=== PATIENT | male | born 1955 | race Caucasian/White ===

== ENCOUNTER 2021-04-21 13:00 | Inpatient (IN) ==
[2021-04-21] MEDS ORDERED: RAPID SEQUENCE INDUCTION BAG ONE (13:09)
[2021-04-21] MEDS ORDERED: SODIUM CHLORIDE 0.9% 500 ML IV STA (13:15)
[2021-04-21] MEDS ORDERED: dexAMETHasone**PF** 10 MG/ML VIAL IV ONE (13:15)
--- NOTE | 2021-04-21 13:29 | Emergency Department Note ---
Impression & Plan COVID-19, Respiratory failure with hypoxia ED Provider Note Provider: Bharath Lewis MD DATE OF SERVICE: 04/21/2021 CHIEF COMPLAINT: Shortness of breath HISTORY OF PRESENT ILLNESS: Patient is a 65-year-old woman denies significant past medical history presenting here today from home with his eldest son with persistent shortness of breath. Patient's been sick for several weeks. Works at [employer] and evidently tested positive for Covid on 08 April. Has been using some vitamins at home. States things have been worsening and has not eaten or drank much in the past 2 weeks. States he is lost almost 20 pounds. Reports some pain around the upper abdomen he states is related to cough. States he has had a little bit of bloody coughing at times. Some generalized myalgias and slight fevers reported times and he has been using some Tylenol but not today. Patient reports proximally 3 days ago overnight he had significant worsening of breathing but stayed at home. Things have improved slightly but called his doctors office today due to his persistent symptoms and was referred here. Patient and son report that his pulse ox has been in the 70s for the last several days at home. Patient was noted to be hypoxic in triage immediately brought back to room for further evaluation. Son does report that the patient's been using less than 2 g a day of extra strength Tylenol at home in addition to a small amount of Tylenol containing NyQuil at night. REVIEW OF SYSTEMS: A total of 10 review of systems was obtained and negative except as stated above in the HPI. PAST MEDICAL HISTORY: As noted above MEDICATIONS: Denies regular current prescription medications SOCIAL HISTORY: Works at [employer], denies smoking, lives at home with PHYSICAL EXAM: GENERAL: alert and oriented fatigued in appearance on the stretcher Head: normocephalic and atraumatic EYES: No injection, discharge or icterus. NECK: Trachea midline. ENT: Mucous membranes pink and somewhat dry LUNGS: Airway patent. No retractions. Breath sounds without significant wheezing appreciated. HEART: Regular rate and rhythm. No chest wall tenderness ABDOMEN: Soft and non-tender, without guarding or rebound. SKIN: Acyanotic, warm, dry, without rashes EXTREMITIES: Without swelling, tenderness or deformity NEUROLOGICAL: No focal deficits. No aphasia. No facial droop or slurred speech. Ambulatory with slight assistance EK bpm normal sinus rhythm. No acute ST segment elevation noted with some artifact. No PVC. QTC 481. CONTINUOUS CARDIAC MONITORING: was ordered and showed a heart rate of 80s to 100s bpm in normal sinus rhythm to sinus tachycardia Patient's laboratory studies and imaging reviewed. Differential includes Reactive airway disease, pneumonia, pneumothorax, COPD, CHF, infections, cardiac ischemia, pulmonary embolism, musculoskeletal, gastrointestinal, as well as other pathologies. IMPRESSION/MEDICAL DECISION MAKING: Patient mainly brought back from triage noted be significant hypoxic there. Prior Covid test almost 2 weeks ago now. Hypoxic for several days by report. Finally given lack of improvement came here for evaluation. Given a dose of dex amethasone with concerns for hypoxic Covid. Chest x-ray be obtained as well as basic blood work. Patient does not appear encephalopathic. CT to exclude PEs will be completed as well. EKG without significant concerning findings for STEMI. Basic blood work including electrolytes and troponin will be sent. Blood cultures to be sent. Given his significant weight loss and fatigue question if he he may have an underlying electrolyte abnormality. Confirmatory Covid test was sent here today. Patient's oxygen improved on a nonrebreather into the 90s. Patient does not appear to be in significant respiratory distress or work of breathing at this time. Patient given dexamethasone here given hypoxia and Covid. Chest x-ray and CTs per radiology without evidence of PE. Extensive groundglass airspace opacities consistent with likely Covid pneumonia as well as some lymphadenopathy is noted. Small bibasilar pleural effusions are noted. No significant leukocytosis and lower suspicion this is bacterial. Procalcitonin will be sent. Will defer antibiotics to the inpatient team. Patient does become hypoxic tickly when lying flat but seated on 15 L he is in the low to mid 90s. Blood work is reassuring without significant hypercarbia or anemia. No severe electrolyte abnormalities signs of renal dysfunction. Slight AST elevation at 78 likely related to his viral syndrome but I doubt any significant injury from his Tylenol use less than 2 g over the past 2 weeks. TSH within normal limits. Troponin is not elevated I doubt cardiac ischemia or demand ischemia. Discussed with the patient and son recommendation for further care here at the hospital given his significant hypoxia and oxygen requirement. They are in agreement. The hospitalist will be contacted. Patient later required some escalation to high flow oxygen. DIAGNOSIS: COVID-19, hypoxic respiratory failure DISPOSITION: Hospitalist will evaluate Patient was agreeable with this plan. Critical Care I have personally spent 42 minutes of critical care time in the direct management of this patient. This includes bedside care, interpretation of diagnostic studies, and testing, discussion with consultants, patient, and family members, and other required patient management activities. These 42 minutes is in excess of all separately billable procedures. Past Med/Surg History Social History Smoking Status: Unknown if ever smoked Feels Safe at Home: Yes Allergies Allergies Allergy/AdvReac Type Severity Reaction Status Date / Time No Known Allergies Allergy Unverified 04/21/21 14:57 Home Meds Home Medications Medication Instructions Recorded Confirmed No Known Home Medications 04/21/21 04/21/21 Results & Data (ED) Vital Signs Vital Signs - 24 hr 04/21/21 13:06 04/21/21 13:12 04/21/21 13:31 Temperature 37.5 C Temperature Source Oral Pulse Rate 99 H 87 87 Pulse Rate [Finger] Pulse Rate from SpO2 Sensor 87 87 Respiratory Rate 30 H Respiratory Effort / Characteristics Spontaneous Labored SOB on Exertion Respiratory Depth Normal Respiratory Pattern Regular Blood Pressure 143/84 H 155/85 H 137/84 Blood Pressure [Left Arm] Blood Pressure Mean 103 108 101 Blood Pressure Mean [Left Arm] Pulse Oximetry 68 L 92 93 Oxygen Delivery Method Room Air Oxygen Flow Rate Sepsis Recent Fever Within 48 Hours No Sepsis New/Unexplained Change in Mental Status No Sepsis Action Taken by Nursing No Action Required 04/21/21 13:45 04/21/21 14:21 04/21/21 15:06 Temperature Temperature Source Pulse Rate Pulse Rate [Finger] 95 H Pulse Rate from SpO2 Sensor 91 H 89 Respiratory Rate 22 Respiratory Effort / Characteristics Respiratory Depth Respiratory Pattern Blood Pressure 126/88 Blood Pressure [Left Arm] 137/80 Blood Pressure Mean 100 Blood Pressure Mean [Left Arm] 99 Pulse Oximetry 94 90 89 L Oxygen Delivery Method Non-rebreather Oxygen Flow Rate 15 Sepsis Recent Fever Within 48 Hours Sepsis New/Unexplained Change in Mental Status Sepsis Action Taken by Nursing Laboratory Data Result diagrams: 04/21/21 13:23 04/21/21 13:23 Lab Results 04/21/21 04/21/21 04/21/21 Range/Units 13:23 13:23 13:23 WBC 7.68 (4.8-10.8) K/uL RBC 4.81 (4.7-6.1) M/uL Hgb 14.4 (14.0-18.0) g/dL POC Hgb (14.0-18.0) g/dl Hct 42.2 (42-52) % POC Hct (42-52) % MCV 87.7 (80-100) fL MCH 29.9 (25-34) pg MCHC 34.1 (32-36) g/dL RDW Std Deviation 44.6 (36.4-46.3) fL RDW Coeff of Quynh 13.8 (11.5-14.5) % Plt Count 389 (130-400) K/uL MPV 10.7 H (7.4-10.4) fL Immature Gran % (Auto) 0.7 % Neut % (Auto) 82.4 % Lymph % (Auto) 9.8 % Freestone % (Auto) 7.0 % Eos % (Auto) 0.0 % Baso % (Auto) 0.1 % Neut # (Auto) 6.33 (1.4-6.5) K/uL Lymph # (Auto) 0.75 L (1.2-3.4) K/uL Freestone # (Auto) 0.54 (0.11-0.59) K/uL Eos # (Auto) 0.00 (0-0.5) K/uL Baso # (Auto) 0.01 (0-0.2) K/uL Immature Gran # (Auto) 0.05 H (0.00-0.02) K/uL PT 9.8 (9.0-12.0) Seconds INR 1.0 (0.9-1.1) APTT 26.7 (21.0-31.0) Seconds PTT Ratio 1.0 VBG pH (7.36-7.41) VBG pCO2 (38-50) mmHg VBG pO2 mmHg VBG HCO3 mmol/L VBG O2 Saturation % VBG Base Excess mEq/L Barometric Pressure mm/Hg POC Sodium (135-144) mmol/L Sodium 135 L (136-145) mmol/L POC Potassium (3.3-5.0) mmol/L Potassium 3.6 (3.5-5.1) mmol/L POC Chloride (101-112) mmol/L Chloride 100 (98-107) mmol/L Carbon Dioxide 25 (21-32) mmol/L POC Total CO2 (24-31) mmol/L Anion Gap 10.0 (3-11) POC Anion Gap (16-25) mmol/L POC BUN (7-18) mg/dl BUN 10 (7-18) mg/dl Creatinine 0.72 (0.6-1.4) mg/dl POC Creatinine (0.6-1.3) mg/dl Est Cr Clr Drug Dosing Not Reportable Est GFR ( Amer) 114.3 ml/min Est GFR (Non-Af Amer) 98.6 ml/min BUN/Creatinine Ratio 14.0 (10-20) Glucose 105 H (70-99) mg/dl POC Glucose (other) (70-99) mg/dl Lactate (0.4-2.0) mmol/L Calcium 8.5 (8.5-10.1) mg/dl POC Ioniz Calcium Alex (1.12-1.32) mmol/l Magnesium 2.5 H (1.8-2.4) mg/dl Total Bilirubin 0.9 (0.2-1) mg/dl AST 78 H (15-37) U/L ALT 62 (12-78) U/L Alkaline Phosphatase 140 H (45-117) U/L Troponin I < 0.015 (0-0.045) ng/ml Total Protein 6.7 (6.4-8.2) gm/dl Albumin 2.4 L (3.4-5.0) gm/dl Globulin 4.3 H (2.5-4.0) gm/dl Albumin/Globulin Ratio 0.6 L (0.9-2) TSH 1.030 (0.300-4.500) uIu/ml COVID-19 Eval Order 04/21/21 04/21/21 04/21/21 Range/Units 13:34 13:34 13:37 WBC (4.8-10.8) K/uL RBC (4.7-6.1) M/uL Hgb (14.0-18.0) g/dL POC Hgb 13.9 L (14.0-18.0) g/dl Hct (42-52) % POC Hct 41 L (42-52) % MCV (80-100) fL MCH (25-34) pg MCHC (32-36) g/dL RDW Std Deviation (36.4-46.3) fL RDW Coeff of Quynh (11.5-14.5) % Plt Count (130-400) K/uL MPV (7.4-10.4) fL Immature Gran % (Auto) % Neut % (Auto) % Lymph % (Auto) % Freestone % (Auto) % Eos % (Auto) % Baso % (Auto) % Neut # (Auto) (1.4-6.5) K/uL Lymph # (Auto) (1.2-3.4) K/uL Freestone # (Auto) (0.11-0.59) K/uL Eos # (Auto) (0-0.5) K/uL Baso # (Auto) (0-0.2) K/uL Immature Gran # (Auto) (0.00-0.02) K/uL PT (9.0-12.0) Seconds INR (0.9-1.1) APTT (21.0-31.0) Seconds PTT Ratio VBG pH 7.48 H (7.36-7.41) VBG pCO2 33 L (38-50) mmHg VBG pO2 40 mmHg VBG HCO3 24 mmol/L VBG O2 Saturation 76.4 % VBG Base Excess 1.2 mEq/L Barometric Pressure 730.3 mm/Hg POC Sodium 133 L (135-144) mmol/L Sodium (136-145) mmol/L POC Potassium 3.5 (3.3-5.0) mmol/L Potassium (3.5-5.1) mmol/L POC Chloride 98 L (101-112) mmol/L Chloride (98-107) mmol/L Carbon Dioxide (21-32) mmol/L POC Total CO2 22 L (24-31) mmol/L Anion Gap (3-11) POC Anion Gap 18.0 (16-25) mmol/L POC BUN 10 (7-18) mg/dl BUN (7-18) mg/dl Creatinine (0.6-1.4) mg/dl POC Creatinine 0.6 (0.6-1.3) mg/dl Est Cr Clr Drug Dosing Est GFR ( Amer) ml/min Est GFR (Non-Af Amer) ml/min BUN/Creatinine Ratio (10-20) Glucose (70-99) mg/dl POC Glucose (other) 108 H (70-99) mg/dl Lactate 1.5 (0.4-2.0) mmol/L Calcium (8.5-10.1) mg/dl POC Ioniz Calcium Alex 1.08 L (1.12-1.32) mmol/l Magnesium (1.8-2.4) mg/dl Total Bilirubin (0.2-1) mg/dl AST (15-37) U/L ALT (12-78) U/L Alkaline Phosphatase (45-117) U/L Troponin I (0-0.045) ng/ml Total Protein (6.4-8.2) gm/dl Albumin (3.4-5.0) gm/dl Globulin (2.5-4.0) gm/dl Albumin/Globulin Ratio (0.9-2) TSH (0.300-4.500) uIu/ml COVID-19 Eval Order 04/21/21 Range/Units 14:40 WBC (4.8-10.8) K/uL RBC (4.7-6.1) M/uL Hgb (14.0-18.0) g/dL POC Hgb (14.0-18.0) g/dl Hct (42-52) % POC Hct (42-52) % MCV (80-100) fL MCH (25-34) pg MCHC (32-36) g/dL RDW Std Deviation (36.4-46.3) fL RDW Coeff of Quynh (11.5-14.5) % Plt Count (130-400) K/uL MPV (7.4-10.4) fL Immature Gran % (Auto) % Neut % (Auto) % Lymph % (Auto) % Freestone % (Auto) % Eos % (Auto) % Baso % (Auto) % Neut # (Auto) (1.4-6.5) K/uL Lymph # (Auto) (1.2-3.4) K/uL Freestone # (Auto) (0.11-0.59) K/uL Eos # (Auto) (0-0.5) K/uL Baso # (Auto) (0-0.2) K/uL Immature Gran # (Auto) (0.00-0.02) K/uL PT (9.0-12.0) Seconds INR (0.9-1.1) APTT (21.0-31.0) Seconds PTT Ratio VBG pH (7.36-7.41) VBG pCO2 (38-50) mmHg VBG pO2 mmHg VBG HCO3 mmol/L VBG O2 Saturation % VBG Base Excess mEq/L Barometric Pressure mm/Hg POC Sodium (135-144) mmol/L Sodium (136-145) mmol/L POC Potassium (3.3-5.0) mmol/L Potassium (3.5-5.1) mmol/L POC Chloride (101-112) mmol/L Chloride (98-107) mmol/L Carbon Dioxide (21-32) mmol/L POC Total CO2 (24-31) mmol/L Anion Gap (3-11) POC Anion Gap (16-25) mmol/L POC BUN (7-18) mg/dl BUN (7-18) mg/dl Creatinine (0.6-1.4) mg/dl POC Creatinine (0.6-1.3) mg/dl Est Cr Clr Drug Dosing Est GFR ( Amer) ml/min Est GFR (Non-Af Amer) ml/min BUN/Creatinine Ratio (10-20) Glucose (70-99) mg/dl POC Glucose (other) (70-99) mg/dl Lactate (0.4-2.0) mmol/L Calcium (8.5-10.1) mg/dl POC Ioniz Calcium Alex (1.12-1.32) mmol/l Magnesium (1.8-2.4) mg/dl Total Bilirubin (0.2-1) mg/dl AST (15-37) U/L ALT (12-78) U/L Alkaline Phosphatase (45-117) U/L Troponin I (0-0.045) ng/ml Total Protein (6.4-8.2) gm/dl Albumin (3.4-5.0) gm/dl Globulin (2.5-4.0) gm/dl Albumin/Globulin Ratio (0.9-2) TSH (0.300-4.500) uIu/ml COVID-19 Eval Order Covid19 at [facility] Administered Medications Discontinued Medications Dexamethasone Sodium Phosphate (DexamethasonePf 10 Mg/Ml Vial) 10 mg IV NOW ONE Stop: 04/21/21 13:16 Last Admin: 04/21/21 13:25 Dose: 10 mg Documented by: [id number] Sodium Chloride (Nss) 500 mls @ 999 mls/hr IV .Q31M STA Stop: 04/21/21 13:45 Last Infusion: 04/21/21 14:00 Dose: 0 mls/hr Documented by: [id number] Admin: 04/21/21 13:27 Dose: 999 mls/hr Documented by: [id number] Ioversol (Optiray 320 125ml) 120 ml IV ONCE ONE Stop: 04/21/21 14:11 Last Admin: 04/21/21 14:10 Dose: 120 ml Documented by: [id number] Miscellaneous (Rapid Sequence Induction Bag) Confirm Administered Dose 1 ea .ROUTE .STK-MED ONE Stop: 04/21/21 13:10 Last Admin: 04/21/21 14:50 Dose: Not Given Documented by: [id number] Imaging Data Radiologist's Impression: Chest CTA 04/21/21 13:15 CHEST CTA for PULMONARY ARTERIES CT DOSE: 483.25 mGycm HISTORY: Dyspnea, hypoxia, COVID TECHNIQUE: Multiaxial CT images of the chest were performed following the intravenous administration of contrast to evaluate the pulmonary arteries. Maximal intensity projection images were also obtained. A dose lowering technique was utilized adhering to the principles of ALARA. COMPARISON STUDY: None. FINDINGS: Normal caliber thoracic aorta with no evidence for dissection. No filling defects within the pulmonary arteries to suggest a pulmonary embolus. Limited views of the upper abdomen demonstrate normal liver, spleen, and adrenal glands. Normal esophagus. Subcarinal and bilateral hilar lymphadenopathy, right greater than left. Dominant subcarinal/right infrahilar lymph node measures 3.1 x 2.0 cm. This is nonspecific but likely reactive to the pneumonia. There are small bilateral pleural effusions. No pericardial effusion. The heart is normal in size. No pneumothorax. Extensive groundglass opacities throughout the roberto ority of the lungs with associated interlobular septal thickening demonstrating a "crazy paving" pattern. This could be consistent with the patient's history of Covid pneumonia. This is most pronounced within the mid lung zones. The central airways are patent. IMPRESSION: 1. No evidence for pulmonary embolus. 2. Extensive bilateral groundglass airspace opacities. This likely represents the patient's known Covid pneumonia. 3. Small bilateral pleural effusions. 4. Mediastinal and bilateral hilar lymphadenopathy most pronounced on the right. This could be reactive to the suspected pneumonia. ACT 112: Negative or not required by law. Electronically signed by: German Santana M.D. 04/21/2021 2:34 PM Chest X-Ray 04/21/21 13:15 XR chest 1V portable INDICATION: MN ^Y ^Dyspnea . TECHNIQUE: Single frontal radiograph of the chest was obtained. Comparison: None available at the time of this dictation. FINDINGS: No lines and tubes are seen. The cardiomediastinal silhouette is normal. Opacities are seen in the predominantly mid and lower lungs. Mild cephalization of vasculature and Janis B lines are noted. No evidence of pleural effusion or pneumothorax. IMPRESSION: 1. Diffuse airspace opacities which may represent atelectasis, pneumonia, and/or aspiration. 2. Likely moderate pulmonary edema. ACT 112: Negative or not required by law. Electronically signed by: Sanjay Larry M.D. 04/21/2021 1:55 PM Discharge Plan Visit Data Chief Complaint: Shortness of Breath/Dyspnea Stated Complaint: O2 LEVELS LOW, SOB ED Provider: Bharath Lewis Discharge Problem: COVID-19, Respiratory failure with hypoxia Patient Disposition: Being Evaluated by Hospitalist Discharge Instructions Interventions: ED Discharge Assessment Last Done: 04/21/21 15:32 Forms Stand Alone Forms: [facility] Prescriptions Prescriptions: No Action No Known Home Medications RF: 0 Referrals Referrals: PCP,NO [Physician] - Discharge Problem: Respiratory failure with hypoxia Qualifiers: Chronicity: acute Qualified Code(s): J96.01 - Acute respiratory failure with hypoxia
[2021-04-21 13:43] LABS: Basophils # (auto) 0.01 K/uL (0-0.2); Basophils % (auto) 0.1 %; Hematocrit (blood only) 42.2 % (42-52); Hemoglobin 14.4 g/dL (14.0-18.0); Immature Granulocytes # (auto) 0.05 K/uL (0.00-0.02); Immature Granulocytes % (auto) 0.7 %; Lymphocytes # (auto) 0.75 K/uL (1.2-3.4); Lymphocytes % (auto) 9.8 %; Mean Corpuscular Hemoglobin 29.9 pg (25-34); Mean Corpuscular Hgb Conc 34.1 g/dL (32-36); Mean Corpuscular Volume 87.7 fL (80-100); Mean Platelet Volume 10.7 fL (7.4-10.4); Monocytes # (auto) 0.54 K/uL (0.11-0.59); Neutrophils # (auto) 6.33 K/uL (1.4-6.5); Neutrophils % (auto) 82.4 %; Platelet Count 389 K/uL (130-400); RDW Coefficient of Variation 13.8 % (11.5-14.5); RDW Standard Deviation 44.6 fL (36.4-46.3); Red Blood Count 4.81 M/uL (4.7-6.1); White Blood Count 7.68 K/uL (4.8-10.8)
[2021-04-21 13:50] LABS: iSTAT Creatinine 0.6 mg/dl (0.6-1.3); iSTAT Hemoglobin 13.9 g/dl (14.0-18.0); iSTAT Ionized Calcium 1.08 mmol/l (1.12-1.32); iSTAT Potassium 3.5 mmol/L (3.3-5.0)
--- NOTE | 2021-04-21 13:56 | XRay Report ---
XR chest 1V portable INDICATION: MN ^Y ^Dyspnea . TECHNIQUE: Single frontal radiograph of the chest was obtained. Comparison: None available at the time of this dictation. FINDINGS: No lines and tubes are seen. The cardiomediastinal silhouette is normal. Opacities are seen in the pr edominantly mid and lower lungs. Mild cephalization of vasculature and Janis B lines are noted. No e vidence of pleural effusion or pneumothorax. IMPRESSION: 1. Diffuse airspace opacities which may represent atelectasis, pneumonia, and/or aspiration. 2. Likely moderate pulmonary edema. ACT 112: Negative or not required by law. Electronically signed by: Sanjay Larry M.D. 04/21/2021 1:55 PM
[2021-04-21 13:58] LABS: Partial Thromboplastin Time 26.7 Seconds (21.0-31.0); Prothrombin Time 9.8 Seconds (9.0-12.0)
[2021-04-21 14:00] LABS: Alanine Aminotransferase 62 U/L (12-78); Albumin Level 2.4 gm/dl (3.4-5.0); Aspartate Aminotransferase 78 U/L (15-37); Blood Urea Nitrogen 10 mg/dl (7-18); Calcium 8.5 mg/dl (8.5-10.1); Carbon Dioxide 25 mmol/L (21-32); Chloride 100 mmol/L (98-107); Est GFR (African American) 114.3 ml/min; Est GFR (Non-African American) 98.6 ml/min; Glucose 105 mg/dl (70-99); Magnesium 2.5 mg/dl (1.8-2.4); Potassium 3.6 mmol/L (3.5-5.1); Sodium 135 mmol/L (136-145)
[2021-04-21 14:10] LABS: Albumin Globulin Ratio 0.6 (0.9-2); Alkaline Phosphatase 140 U/L (45-117); Bilirubin,Total 0.9 mg/dl (0.2-1); Globulin 4.3 gm/dl (2.5-4.0); Total Protein 6.7 gm/dl (6.4-8.2); Troponin I < 0.015 ng/ml (0-0.045)
[2021-04-21] MEDS ORDERED: OPTIRAY 320 125ml IV ONE (14:10)
[2021-04-21 14:23] LABS: Base Excess VBG 1.2 mEq/L; Oxygen Saturation VBG 76.4 %; pH VBG 7.48 (7.36-7.41)
--- NOTE | 2021-04-21 14:35 | CT Scan Report ---
CHEST CTA for PULMONARY ARTERIES CT DOSE: 483.25 mGycm HISTORY: Dyspnea, hypoxia, COVID TECHNIQUE: Multiaxial CT images of the chest were performed following the intravenous administration of contrast to evaluate the pulmonary arteries. Maximal intensity projection images were also obtaine d. A dose lowering technique was utilized adhering to the principles of ALARA. COMPARISON STUDY: None. FINDINGS: Normal caliber thoracic aorta with no evidence for dissection. No filling defects within th e pulmonary arteries to suggest a pulmonary embolus. Limited views of the upper abdomen demonstrate n ormal liver, spleen, and adrenal glands. Normal esophagus. Subcarinal and bilateral hilar lymphadenop athy, right greater than left. Dominant subcarinal/right infrahilar lymph node measures 3.1 x 2.0 cm. This is nonspecific but likely reactive to the pneumonia. There are small bilateral pleural effusion s. No pericardial effusion. The heart is normal in size. No pneumothorax. Extensive groundglass opaci ties throughout the majority of the lungs with associated interlobular septal thickening demonstratin g a "crazy paving" pattern. This could be consistent with the patient's history of Covid pneumonia. T his is most pronounced within the mid lung zones. The central airways are patent. IMPRESSION: 1. No evidence for pulmonary embolus. 2. Extensive bilateral groundglass airspace opacities. This likely represents the patient's known Cov id pneumonia. 3. Small bilateral pleural effusions. 4. Mediastinal and bilateral hilar lymphadenopathy most pronounced on the right. This could be reacti ve to the suspected pneumonia. ACT 112: Negative or not required by law. Electronically signed by: German Santana M.D. 04/21/2021 2:34 PM
--- NOTE | 2021-04-21 15:40 | Electrocardiogram Report ---
Test Reason : Blood Pressure : / mmHG Vent. Rate : 088 BPM Atrial Rate : 088 BPM P-R Int : 176 ms QRS Dur : 078 ms QT Int : 398 ms P-R-T Axes : 053 103 043 degrees QTc Int : 481 ms Poor data quality, interpretation may be adversely affected Normal sinus rhythm Rightward axis Septal infarct , age undetermined Abnormal ECG No previous ECGs available Confirmed by Hemant Beaulieu ([id number]) on 04/21/2021 3:40:20 PM Referred By: Confirmed By:Hemant Beaulieu
[2021-04-21] MEDS ORDERED: FUROSEMIDE 40 MG/4 ML VIAL IV ONE ×2 (15:51→18:34)
[2021-04-21] MEDS ORDERED: ACETAMINOPHEN 325 MG TAB PO PRN (16:06)
[2021-04-21] MEDS ORDERED: ALBUT/IPRATROP 3MG/0.5MG NEB 3 ML VIAL NEB PRN (16:06)
--- NOTE | 2021-04-21 16:13 | History & Physical Report ---
Date of Service April 21, 2021 Assessment & Plan (1) COVID-19: (2) Respiratory failure with hypoxia: Plan: -Admit to telemetry -Patient presenting from home with reports of worsening shortness of breath and cough. Reportedly tested positive for COVID-19 on 04/08 -In the ED, was saturating 68% on room air, then placed on 15 L NRB, now requiring high flow 30 L 80% FiO2 -CTA chest negative for pulmonary embolism however shows changes consistent with COVID pneumonia and small bilateral pleural effusions -Not a candidate for remdesivir given length of illness, consider starting tocilizumab tomorrow -Dexamethasone 6 mg IV daily -Lasix 40mg IV x 1 -supportive care with proning, nebs, IS, and flutter valve (3) DVT prophylaxis: Plan: -SQ Lovenoox Admission and Anticipated Discharge Date Admission Date: April 21, 2021 History of Present Illness Chief Complaint: Shortness of breath Primary Care Provider: Marcelino Hodgson DO 65-year-old male without significant past medical history who presents to the ED with reports of shortness of breath. Patient reports testing positive for COVID-19 on 04/08. Official results are not available to me at this time. Lesly puga reports worsening shortness of breath and cough over the past 1 week. Has had a cough productive for mostly white sputum however today became blood-tinged. Patient also reports monitoring his oxygen saturations at home and has been in the 70s. Patient reports some right rib pain from coughing. No chest pain. Reports running persistent fevers of around 100. Reports a very poor appetite. No nausea, vomiting, abdominal pain, diarrhea. Denies lightheadedness, dizziness, diaphoresis, syncopal events. No urinary symptoms. In the ED, patient tested positive for COVID-19. He was saturating 85% on a 15 L nonrebreather, currently being placed on high flow oxygen. Labs are mostly unremarkable. CTA chest negative for pulmonary embolism however shows changes consistent with COVID-19 pneumonia and small bilateral pleural effusions. Patient was given dexamethasone 10 mg IV and IVF. Allergies Allergy/AdvReac Type Severity Reaction Status Date / Time No Known Allergies Allergy Unverified 04/21/21 14:57 Home Medications Medication Instructions Recorded Confirmed Type No Known Home Medications 04/21/21 04/21/21 History Past Med/Surg History Medical History No pertinent past medical history Surgical History No pertinent past surgical history Family History Other Family history unknown Social History (Updated 04/21/21 @ 16:13 by RUBY Mari) Smoking Status: Never smoker Hx Alcohol Use: No Hx Substance Use: No Preferred Language: Maori Communication Ability: Effective Railroad Passenger Agent Required: No Beliefs That Will Affect Care: None Current Living Situation: Spouse Feels Safe at Home: Yes Assistive Devices: Glasses Review of Systems Review of Systems: ROS per HPI, all other systems reviewed and negative Physical Exam Constitutional: WD/WN, vitals as above Eyes: PERRL, conjunctivae normal, anicteric sclerae ENMT: external ear and nose normal, oropharynx normal Respiratory: normal respiratory effort; no respiratory distress Auscultation: + diminished lung sounds (BL, minimal air movement) Cardiovascular: Rate/Rhythm: regular rate and regular rhythm Vessels: normal peripheral pulses Extremities: no edema Gastrointestinal (Abdomen): normal bowel sounds, soft, nontender, no hepatosplenomegaly Musculoskeletal: no cyanosis or clubbing, extremities motor strength 5/5 Skin: no rashes, warm and dry Neurologic: PERRL, EOMI, accommodation nl, no face palsy, no dysarthria Psychiatric: A+Ox3, euthymic affect Results & Data Results & Data ([facility]) Vital Signs (Past 12 Hours) Vital Signs Temp Pulse Pulse Resp BP BP Pulse Ox 04/21/21 15:06 95 H 22 137/80 89 L 04/21/21 14:21 90 04/21/21 13:45 126/88 94 04/21/21 13:31 87 137/84 93 04/21/21 13:12 87 155/85 H 92 04/21/21 13:06 37.5 C 99 H 30 H 143/84 H 68 L Laboratory Results Short CBC 04/21/21 Range/Units 13:23 WBC 7.68 (4.8-10.8) K/uL Hgb 14.4 (14.0-18.0) g/dL Hct 42.2 (42-52) % Plt Count 389 (130-400) K/uL BMP 04/21/21 13:23 Sodium 135 L Potassium 3.6 Chloride 100 Carbon Dioxide 25 BUN 10 Creatinine 0.72 Glucose 105 H Calcium 8.5 Cardiac Enzymes 04/21/21 Range/Units 13:23 Troponin I < 0.015 (0-0.045) ng/ml Liver Function 04/21/21 Range/Units 13:23 Total Bilirubin 0.9 (0.2-1) mg/dl AST 78 H (15-37) U/L ALT 62 (12-78) U/L Alkaline Phosphatase 140 H (45-117) U/L Albumin 2.4 L (3.4-5.0) gm/dl Diagnostic Findings Chest CTA 04/21/21 13:15 CHEST CTA for PULMONARY ARTERIES CT DOSE: 483.25 mGycm HISTORY: Dyspnea, hypoxia, COVID TECHNIQUE: Multiaxial CT images of the chest were performed following the intravenous administration of contrast to evaluate the pulmonary arteries. Maximal intensity projection images were also obtained. A dose lowering technique was utilized adhering to the principles of ALARA. COMPARISON STUDY: None. FINDINGS: Normal caliber thoracic aorta with no evidence for dissection. No filling defects within the pulmonary arteries to suggest a pulmonary embolus. Limited views of the upper abdomen demonstrate normal liver, spleen, and adrenal glands. Normal esophagus. Subcarinal and bilateral hilar lymphadenopathy, right greater than left. Dominant subcarinal/right infrahilar lymph node measures 3.1 x 2.0 cm. This is nonspecific but likely reactive to the pneumonia. There are small bilateral pleural effusions. No pericardial effusion. The heart is normal in size. No pneumothorax. Extensive groundglass opacities throughout the majority of the lungs with associated interlobular septal thickening demonstrating a "crazy paving" pattern. This could be consistent with the patient's history of Covid pneumonia. This is most pronounced within the mid lung zones. The central airways are patent. IMPRESSION: 1. No evidence for pulmonary embolus. 2. Extensive bilateral groundglass airspace opacities. This likely represents the patient's known Covid pneumonia. 3. Small bilateral pleural effusions. 4. Mediastinal and bilateral hilar lymphadenopathy most pronounced on the right. This could be reactive to the suspected pneumonia. ACT 112: Negative or not required by law. Electronically signed by: German Santana M.D. 04/21/2021 2:34 PM Chest X-Ray 04/21/21 13:15 XR chest 1V portable INDICATION: MN ^Y ^Dyspnea . TECHNIQUE: Single frontal radiograph of the chest was obtained. Comparison: None available at the time of this dictation. FINDINGS: No lines and tubes are seen. The cardiomediastinal silhouette is normal. Opacities are seen in the predominantly mid and lower lungs. Mild cephalization of vasculature and Janis B lines are noted. No evidence of pleural effusion or pneumothorax. IMPRESSION: 1. Diffuse airspace opacities which may represent atelectasis, pneumonia, and/or aspiration. 2. Likely moderate pulmonary edema. ACT 112: Negative or not required by law. Electronically signed by: Sanjay Larry M.D. 04/21/2021 1:55 PM Code Status & VTE Plan Code Status Patient is a full code as per my discussion with him. VTE Prophylaxis Plan VTE Prophylaxis will be ordered: Yes Supervising Physician Co-Signing Physician Notes 65-year-old man with out significant past medical or surgical history presents to the ED with shortness of breath starting 04/08 and was diagnosed with COVID-19 as an outpatient. Official results of which are not available. Covid test in the hospital came positive. He was very hypoxic at presentation on room air, needed 15 L oxygen high flow nasal cannula. Upon Exam: GENERAL: Alert and oriented x3. NAD, on 15 L HEENT: No pallor, no icterus. Pupils equal, round and reactive to light. Oral mucosa moist. NECK: No JVD, no neck masses. HEART: S1 and S2 heard. Regular rate and rhythm. No murmur, no gallop. RESPIRATORY SYSTEM: Normal AP diameter. No accessory muscle use. No wheezing, no crackles. ABDOMEN: Soft, bowel sounds present, nontender, no distention. CENTRAL NERVOUS SYSTEM: Alert and oriented x3. No facial droop. Speech is clear. Obeys simple commands. Moves extremities. EXTREMITIES: No edema, no erythema seen. I have seen and examined the patient and have discussed the case with the provider above. I agree with the assessment and plan as stated. (1) Respiratory failure with hypoxia Chronicity: acute Qualified Code(s): J96.01 - Acute respiratory failure with hypoxia
[2021-04-21] MEDS ORDERED: PATIENT'S HEIGHT NEEDED SCH (16:15)
--- NOTE | 2021-04-21 16:33 | Pulmonary Consultation ---
Date of Consultation April 21, 2021 Assessment & Plan (1) COVID-19: (2) Respiratory failure with hypoxia: Chronicity: acute Qualified Code(s): J96.01 - Acute respiratory failure with hypoxia 65-year-old male with no significant past medical history who presented to the hospital due to COVID-19 viral pneumonia and acute hypoxemic respiratory failure. His biomarkers are very elevated. He does qualify for tocilizumab therapy. He defers his medical decisions to his son Ryland. He does not want to give consent for tocilizumab without his son's involvement. I called the patient's son Ryland at phone number [phone]. I discussed the plan of care regarding his father. The patient's son consents for tocilizumab. He understands the risks and benefits of tocilizumab therapy. I will contact the pharmacy and we will administer it. Continue Decadron therapy as you are doing. Self proning highly encouraged. Continue high flow nasal cannula to maintain saturations above 90%. Please wean FiO2 prior to weaning flow. Continue pulmonary toileting with flutter valve and incentive spirometry. Recommend keeping him euvolemic given his ARDS-like picture. Agree with IV Lasix. The patient certainly has a high risk for sudden decompensation and mechanical ventilation. This was relayed to the patient and the patient's son, Ryland. Pulmonary will continue to follow with you. Thank you for the consult. History of Present Illness Reason for Consultation: COVID-19 viral pneumonia Attending Physician: Ofe Le MD History of Present Illness 65-year-old male with no significant past medical history presented to the ER today due to increasing shortness of breath. Patient has had respiratory symptoms for the past several weeks. His p.o. intake has been limited over the past 2 weeks. He has pain in his chest and abdomen due to frequently coughing. He checked his pulse oximetry at home and his pulse ox readings were in the 70s. He is currently on high flow nasal cannula requiring 30 L of flow and 80% FiO2. He relates that he defers most of his medical decisions to his family and his son Ryland. Patient describes that his shortness of breath really began this past Monday and has persisted. No significant cytosis seen on labs. VBG did strain a respiratory alkalosis with a pH of 7.48 and a PCO2 of 33. Mild hyponatremia seen on labs with a sodium of 133. There was some mild transaminitis with an alkaline phosphatase of 140 and an AST of 78. Procalcitonin 0.26. Chest x-ray with diffuse bilateral airspace opacities. Chest CTA personally reviewed with extensive groundglass airspace opacities and small bilateral effusions. Mediastinal and bilateral hilar adenopathy noted. Patient is currently receiving Decadron 6 mg daily and Lovenox 40 mg daily. 500 cc bolus of normal saline was given in the ER. Allergies Allergy/AdvReac Type Severity Reaction Status Date / Time No Known Allergies Allergy Unverified 04/21/21 14:57 Home Medications Medication Instructions Recorded Confirmed Type No Known Home Medications 04/21/21 04/21/21 History Patient History Medical History No pertinent past medical history Surgical History No pertinent past surgical history Family History Other Family history unknown Social History (Updated 04/21/21 @ 16:13 by RUBY Mari) Smoking Status: Never smoker Hx Alcohol Use: No Hx Substance Use: No Preferred Language: Albanian Communication Ability: Effective Social Services Manager Required: No Beliefs That Will Affect Care: None Current Living Situation: Spouse Other Information That Helps Us Care for You: No Feels Safe at Home: Yes Safety Concerns: Feels Safe At This Time Assistive Devices: Glasses Assistive Devices Comment: reading glasses Review of Systems Review of Systems: All systems reviewed & are unremarkable except as noted in HPI & below Physical Exam Physical Exam: Constitutional: Patient appears to be of their stated age. Patient is in no apparent distress. Patient is well-developed. Eyes: Pupils are equal round and reactive to light. Conjunctivae are normal. Anicteric sclera. Ears nose, mouth and throat: Mallampati class []. Normal posterior oropharynx. Uvula is midline. Neck: Trachea is midline. Visual inspection is normal. Respiratory: Mild crackles noted in the lower lobes bilaterally. No wheezes. Mild tachypnea. Cardiovascular: Regular rate and rhythm. No murmurs. No edema. Gastrointestinal: Normal bowel sounds, soft, nontender and nondistended. No hepatosplenomegaly noted. Musculoskeletal: No cyanosis. Patient is able to move all extremities. Strength is 5 out of 5 in the upper and lower extremities. Skin: No rashes, warm dry and intact. Neurologic: No obvious focal neurological deficits seen. Psychiatric: Alert and oriented x3 with a euthymic affect. Results & Data Results & Data ([facility]) Vital Signs (Past 12 Hours) Vital Signs Temp Pulse Pulse Resp BP BP Pulse Ox 04/21/21 16:11 77 18 94 04/21/21 15:06 95 H 22 137/80 89 L 04/21/21 14:21 90 04/21/21 13:45 126/88 94 04/21/21 13:31 87 137/84 93 04/21/21 13:12 87 155/85 H 92 04/21/21 13:06 99.5 F 99 H 30 H 143/84 H 68 L Vital signs, labs and imaging reviewed. CT chest personally reviewed with severe glass opacities diffusely. Bilateral small effusions noted. PG Care Time/CCT Total # of Minutes Spent Total Time Spent with Patient: Total time spent is greater than 50% in coordination of care (as documented) at patient's floor/unit and/or counseling patient: Coding Level of Care Code 38738 Inpt Consult Level 5 Diagnoses COVID-19 U07.1 Respiratory failure with hypoxia J96.01 Chronicity: acute
[2021-04-21 16:51] LABS: Base Excess ABG 0.9 mEq/L (-9-1.8); HCO3 ABG 24 mmol/L (19-24); Oxygen Saturation ABG 97.5 % (90-95); PCO2 ABG 34 mmHg (35-46); PO2 ABG 92 mmHg (80-95); pH ABG 7.47 (7.35-7.45)
[2021-04-21 16:54] LABS: Allen Test Pos (Pos)
[2021-04-21] MEDS ORDERED: TOCILIZUMAB 400 MG, TOCILIZUMAB 200 MG in 0.9 % SODIUM CHLORIDE 70 ML IV ONE (17:45)
[2021-04-21] MEDS: ENOXAPARIN INJ 40 MG/0.4 ML SYR SQ SCH (18:52)
[2021-04-22 07:37] LABS: Albumin Level 2.2 gm/dl (3.4-5.0); BUN Creatinine Ratio 24.9 (10-20); Calcium 8.6 mg/dl (8.5-10.1); Creatinine Clr Calc Pharmacy 86.6 ml/min; Est GFR (African American) 112.4 ml/min; Est GFR (Non-African American) 96.9 ml/min; Magnesium 2.6 mg/dl (1.8-2.4)
[2021-04-22 07:40] LABS: Albumin Globulin Ratio 0.5 (0.9-2); Bilirubin,Total 0.7 mg/dl (0.2-1); Globulin 4.3 gm/dl (2.5-4.0); Total Protein 6.5 gm/dl (6.4-8.2)
--- NOTE | 2021-04-22 12:37 | Pulmonology Progress Note ---
Date of Service April 22, 2021 Assessment & Plan (1) COVID-19: (2) Respiratory failure with hypoxia: Chronicity: acute Qualified Code(s): J96.01 - Acute respiratory failure with hypoxia Plan: 65-year-old male with no significant past medical history who presented to the hospital due to COVID-19 viral pneumonia and acute hypoxemic respiratory failure. Received tocilizumab 04/21/2021. He defers his medical decisions to his son Ryland. He does not want to give consent for tocilizumab without his son's involvement. Phone number [phone]. Patient notes that he was treated for latent tuberculosis 2 to 3 years ago with 6 months of therapy. Procalcitonin 0.26 04/21/2021. No antibiotics indicated at this time. Continue DVT prophylaxis with 40 mg Lovenox daily. Continue Decadron at current dosing. Self and awake proning highly encouraged. Continue high flow nasal cannula to maintain saturations above 90%. Please wean FiO2 prior to weaning flow. Continue pulmonary toileting with flutter valve and incentive spirometry. Recommend keeping him euvolemic given his ARDS-like picture. Continue to use as needed basis IV Lasix. The patient certainly has a high risk for sudden decompensation and mechanical ventilation. Pulmonary will continue to follow with you. Thank you for the consult. Admission and Anticipated Discharge Date Admission Date: April 21, 2021 Subjective Patient seen and examined at bedside. He is sitting up in bed. He denies any shortness of breath. He is currently on high flow nasal cannula saturating approximately 84%. I increased his FiO2 with improvement in his saturations to the low 90s. He denies any chest pain. No fevers or chills. Review of Systems Review of Systems: All systems reviewed & are unremarkable except as noted in HPI & below Physical Exam Physical Exam: Constitutional: Patient appears to be of their stated age. Patient is in no apparent distress. Patient is well-developed. Eyes: Pupils are equal round and reactive to light. Conjunctivae are normal. Anicteric sclera. Ears nose, mouth and throat: Normal posterior oropharynx. Uvula is midline. Neck: Trachea is midline. Visual inspection is normal. Respiratory: Mild crackles noted in the lower lobes bilaterally. No wheezes. Mild tachypnea. Cardiovascular: Regular rate and rhythm. No murmurs. No edema. Gastrointestinal: Normal bowel sounds, soft, nontender and nondistended. No hepatosplenomegaly noted. Musculoskeletal: No cyanosis. Patient is able to move all extremities. Strength is 5 out of 5 in the upper and lower extremities. Skin: No rashes, warm dry and intact. Neurologic: No obvious focal neurological deficits seen. Psychiatric: Alert and oriented x3 with a euthymic affect. Results & Data Results & Data ([facility]) Vital Signs (Past 12 Hours) Vital Signs Temp Pulse Pulse Resp BP Pulse Ox 04/22/21 11:21 98.2 F 87 19 145/73 H 88 L 04/22/21 10:12 87 20 95 04/22/21 08:11 98.4 F 77 18 121/69 93 04/22/21 08:00 64 04/22/21 07:43 76 22 92 04/22/21 03:21 97.7 F 85 20 143/84 H 92 04/22/21 02:48 89 L 04/22/21 02:46 75 20 90 vital signs, labs and imaging personally reviewed. PG Care Time/CCT Total # of Minutes Spent Total Time Spent with Patient: Total time spent is greater than 50% in coordination of care (as documented) at patient's floor/unit and/or counseling patient: Coding Level of Care Code 36943 Subseq Hosp Care Lvl 3 Diagnoses COVID-19 U07.1 Respiratory failure with hypoxia J96.01 Chronicity: acute
[2021-04-22] MEDS: dexAMETHasone 6 MG in SYRINGE 0 ML IV SCH (13:50)
--- NOTE | 2021-04-22 16:30 | Hospitalist Progress Note ---
Date of Service April 22, 2021 Assessment & Plan (1) COVID-19: (2) Respiratory failure with hypoxia: Plan: 65-year-old man with out significant past medical or surgical history presents to the ED with shortness of breath starting 04/08 and was diagnosed with COVID-19 as an outpatient. Official results of which are not available. Covid test in the hospital came positive. He was very hypoxic at presentation on room air, needed 15 L oxygen high flow nasal cannula. Patient reports being treated for TB in 1988 when he entered to [facility]. Not sure whether it is for latent TB or full TB infection. #. Acute hypoxic respiratory failure #. Covid pneumonia Hypoxic at presentation, requiring 15 L nasal cannula oxygen, oxygen requirement uptrending, currently 40 L oxygen. CTA chest negative for PE. Wean oxygen as tolerated, continue with IV dexamethasone Pulmonology on board: Status post Toci 04/21. Patient high risk for decompensation/MV Continue supportive management, encourage spirometry/flutter valve/nebs. DVT prophylaxis: Patient on Lovenox Full code Patient wants his son Ryland to make decision about his medical condition. Admission and Anticipated Discharge Date Admission Date: April 21, 2021 Subjective Patient was sitting up in bed, eating lunch, on high flow nasal cannula oxygen 40 L/min, denies subjective feeling of shortness of breath. Patient desaturated to 70s on high flow nasal cannula overnight, had to be prone to bring his saturation back to more than 90%. Patient advised to prone as able. AOx3. Reports shortness of breath with minimal exertion within room. Denies other review of symptoms. Physical Exam Physical Exam: GENERAL: Alert and oriented x3. NAD, on 40 L HEENT: No pallor, no icterus. Pupils equal, round and reactive to light. Oral mucosa moist. NECK: No JVD, no neck masses. HEART: S1 and S2 heard. Regular rate and rhythm. No murmur, no gallop. RESPIRATORY SYSTEM: Normal AP diameter. No accessory muscle use. No wheezing, crackles diffuse and bilateral ABDOMEN: Soft, bowel sounds present, nontender, no distention. CENTRAL NERVOUS SYSTEM: Alert and oriented x3. No facial droop. Speech is clear. Obeys simple commands. Moves extremities. EXTREMITIES: No edema, no erythema seen. Results & Data Results & Data ([facility]) Vital Signs (Past 12 Hours) Vital Signs Temp Pulse Pulse Resp BP Pulse Ox 04/22/21 16:00 36.9 C 76 20 114/72 96 04/22/21 15:59 76 04/22/21 14:50 78 20 98 04/22/21 11:21 36.8 C 87 19 145/73 H 88 L 04/22/21 10:12 87 20 95 04/22/21 08:11 36.9 C 77 18 121/69 93 04/22/21 08:00 64 04/22/21 07:43 76 22 92 (1) Respiratory failure with hypoxia Chronicity: acute Qualified Code(s): J96.01 - Acute respiratory failure with hypoxia
[2021-04-22] MEDS: ENOXAPARIN INJ 40 MG/0.4 ML SYR SQ SCH (17:11)
[2021-04-23 06:28] LABS: Hematocrit (blood only) 42.2 % (42-52); Mean Corpuscular Hemoglobin 29.3 pg (25-34); Mean Corpuscular Hgb Conc 33.2 g/dL (32-36); Mean Corpuscular Volume 88.3 fL (80-100); Mean Platelet Volume 10.9 fL (7.4-10.4); Platelet Count 478 K/uL (130-400); RDW Coefficient of Variation 13.7 % (11.5-14.5); RDW Standard Deviation 44.7 fL (36.4-46.3); Red Blood Count 4.78 M/uL (4.7-6.1); White Blood Count 8.06 K/uL (4.8-10.8)
[2021-04-23 07:03] LABS: BUN Creatinine Ratio 37.3 (10-20); Calcium 8.6 mg/dl (8.5-10.1); Creatinine Clr Calc Pharmacy 90.2 ml/min; Est GFR (African American) 114.3 ml/min; Est GFR (Non-African American) 98.6 ml/min; Potassium 4.1 mmol/L (3.5-5.1)
[2021-04-23] MEDS: dexAMETHasone 6 MG in SYRINGE 0 ML IV SCH (13:17)
--- NOTE | 2021-04-23 13:56 | Hospitalist Progress Note ---
Date of Service April 23, 2021 Assessment & Plan (1) Respiratory failure with hypoxia: Plan: Secondary to Covid pneumonia. Patient has had ongoing symptoms for the past 2 weeks and has been utilizing home oxygen from a family member prior to admission. He continues on dexamethasone 6 mg daily and is doing well. He received Tocilizumab on 04/21/2021. He has been transitioned off high flow and is now on nasal cannula. He continues to prone, pulmonary toilet as needed. He is otherwise asymptomatic. (2) Pneumonia due to COVID-19 virus: Plan: Continue plan per above. (3) Latent tuberculosis: Plan: Reports previous treatment for this. Latent TB discovered in 1988 when he entered the [facility]. No history of BCG vaccine and uncertain exposure in the past. Currently doing well on steroid therapy. (4) DVT prophylaxis: Plan: Lovenox Full code Disposition-to home when medically stable Rocio Martinez [facility] Ad[facility] and Anticipated Discharge Date Admission Date: April 21, 2021 Subjective 65-year-old man presents with acute respiratory failure secondary to Covid pneumonia He reports feeling well with dyspnea improved today and has now been transitioned off high flow down onto nasal cannula. He denies any chest pain or other issues today He is tolerating p.o. He is afebrile Review of Systems Review of Systems: At least ten systems were reviewed and negative except as indicated in HPI above. Physical Exam Physical Exam: CONSTITUTIONAL: WNWD, vitals as above, generally well- appearing EYES: normal conjunctivae, no scleral icterus ENT: external ear and nose normal, MMM NECK: trachea midline, no lymphadenopathy, normal thyroid RESPIRATORY: clear to auscultation bilaterally, no crackles, rales or wheezes, normal respiratory effort CARDIOVASCULAR: regular rate and rhythm, S1 and 2 heard without murmurs, gallops or rubs, no JVD, no peripheral edema CHEST: inspection of chest was normal GASTROINTESTINAL: normal bowel sounds, soft, nontender, ND, no guarding. MUSCULOSKELETAL: strength 5/5 throughout, head is normocephalic and atraumatic SKIN: warm and dry NEUROLOGIC: CN 2-12 grossly intact, no sensory deficit, normal cognition, normal speech, no tremor, no gross focal deficits. PSYCHIATRIC: alert cooperative and oriented to person, place and time. Results & Data Results & Data ([facility]) Vital Signs (Past 12 Hours) Vital Signs Temp Pulse Resp BP Pulse Ox 04/23/21 11:43 36.6 C 74 20 100/67 90 04/23/21 11:32 87 16 97 04/23/21 08:13 36.8 C 80 22 111/72 96 04/23/21 07:03 81 16 91 04/23/21 04:09 70 18 110/71 94 04/23/21 03:34 67 14 94 Laboratory Results Short CBC 04/23/21 Range/Units 06:08 WBC 8.06 (4.8-10.8) K/uL Hgb 14.0 (14.0-18.0) g/dL Hct 42.2 (42-52) % Plt Count 478 H (130-400) K/uL BMP 04/23/21 06:08 Sodium 139 Potassium 4.1 Chloride 104 Carbon Dioxide 31 BUN 27 H Creatinine 0.72 Glucose 116 H Calcium 8.6 Medications Administered Current Inpatient Medications Acetaminophen (Acetaminophen 325 Mg Tab) 650 mg PO Q4H PRN PRN Reason: Pain or Fever Stop: 05/21/21 16:05 Albuterol (Albut/Ipratrop 3mg/0.5mg Neb 3 Ml Vial) 3 ml NEB Q4R PRN PRN Reason: shortness of breath Stop: 05/21/21 16:05 Enoxaparin Sodium (Enoxaparin Inj 40 Mg/0.4 Ml Syr) 40 mg SQ Q24H KENNEDI Stop: 05/21/21 16:59 Last Admin: 04/22/21 17:11 Dose: 40 mg Documented by: Dexamethasone 6 mg/ Syringe 1.5 mls @ 1 mls/min IV Q24H KENNEDI Stop: 05/22/21 12:59 Last Admin: 04/23/21 13:17 Dose: 1 mls/min Documented by: (1) Respiratory failure with hypoxia Chronicity: acute Qualified Code(s): J96.01 - Acute respiratory failure with hypoxia
--- NOTE | 2021-04-23 16:37 | Pulmonology Progress Note ---
Date of Service April 23, 2021 Assessment & Plan (1) COVID-19: (2) Respiratory failure with hypoxia: Chronicity: acute Qualified Code(s): J96.01 - Acute respiratory failure with hypoxia Plan: 65-year-old male with no significant past medical history who presented to the hospital due to COVID-19 viral pneumonia and acute hypoxemic respiratory failure. Received tocilizumab 04/21/2021. He defers his medical decisions to his son Ryland. Phone number [phone]. Patient notes that he was treated for latent tuberculosis 2 to 3 years ago with 6 months of therapy. Procalcitonin 0.26 04/21/2021. No antibiotics indicated at this time. Continue DVT prophylaxis with 40 mg Lovenox daily. Continue Decadron at current dosing for a total of 10 days. He does not need to remain in the hospital to complete the Decadron course. Self and awake proning highly encouraged. His oxygenation has improved dramatically over the last 2 days. Continue to wean oxygen to maintain sats above 90%. Continue pulmonary toileting with flutter valve and incentive spirometry. Pulmonary will sign off at this time. Thank you for the consultation. Please call with questions. Admission and Anticipated Discharge Date Admission Date: April 21, 2021 Subjective Patient feeling much improved today. He is off high flow nasal cannula and is currently on 5 L of oxygen. He has been very compliant with proning. Appetite good. Feeling much less short of breath. Review of Systems Review of Systems: All systems reviewed & are unremarkable except as noted in HPI & below Physical Exam Physical Exam: Constitutional: Patient appears to be of their stated age. Patient is in no apparent distress. Patient is well-developed. Eyes: Pupils are equal round and reactive to light. Conjunctivae are normal. Anicteric sclera. Ears nose, mouth and throat: Normal posterior oropharynx. Uvula is midline. Neck: Trachea is midline. Visual inspection is normal. Respiratory: Improved air movement bilaterally. No wheezes. Minimal tachypnea. Cardiovascular: Regular rate and rhythm. No murmurs. No edema. Gastrointestinal: Normal bowel sounds, soft, nontender and nondistended. No hepatosplenomegaly noted. Musculoskeletal: No cyanosis. Patient is able to move all extremities. Strength is 5 out of 5 in the upper and lower extremities. Skin: No rashes, warm dry and intact. Neurologic: No obvious focal neurological deficits seen. Psychiatric: Alert and oriented x3 with a euthymic affect. Results & Data Results & Data ([facility]) Vital Signs (Past 12 Hours) Vital Signs Temp Pulse Resp BP Pulse Ox 04/23/21 15:17 98.2 F 69 22 103/68 96 04/23/21 11:43 97.9 F 74 20 100/67 90 04/23/21 11:32 87 16 97 04/23/21 08:13 98.2 F 80 22 111/72 96 04/23/21 07:03 81 16 91 Vital signs, labs and imaging reviewed PG Care Time/CCT Total # of Minutes Spent Total Time Spent with Patient: Total time spent is greater than 50% in coordination of care (as documented) at patient's floor/unit and/or counseling patient: Coding Level of Care Code 99138 Subseq Hosp Care Lvl 2 Diagnoses COVID-19 U07.1 Respiratory failure with hypoxia J96.01 Chronicity: acute
[2021-04-23] MEDS: ENOXAPARIN INJ 40 MG/0.4 ML SYR SQ SCH (18:39)
[2021-04-23] MEDS ORDERED: SODIUM CHLORIDE 0.65% NA SOLN 45 ML (OCEAN) ONE (23:54)
[2021-04-24] MEDS: ZINC SULFATE 220 MG CAPSULE PO SCH (12:23)
[2021-04-24] MEDS: ASCORBIC ACID 500 MG TAB PO SCH ×2 (12:24→21:13)
[2021-04-24] MEDS: FUROSEMIDE 20 MG in SYRINGE 0 ML IV SCH (12:25)
[2021-04-24] MEDS: CHOLECALCIFEROL 1,000 UNITS 25 MCG TAB PO SCH (13:18)
[2021-04-24] MEDS: dexAMETHasone 6 MG in SYRINGE 0 ML IV SCH (13:19)
--- NOTE | 2021-04-24 14:52 | Hospitalist Progress Note ---
Date of Service April 24, 2021 Assessment & Plan (1) Respiratory failure with hypoxia: Plan: Secondary to Covid pneumonia. Patient has had ongoing symptoms for the past 2 weeks and has been utilizing home oxygen from a family member prior to admission. He continues on dexamethasone 6 mg daily and is doing well. He received Tocilizumab on 04/21/2021. He has had a mild increase in oxygen needs overnight. He continues to prone, pulmonary toilet as needed. He is otherwise asymptomatic. (2) Pneumonia due to COVID-19 virus: Plan: Continue plan per above. (3) Latent tuberculosis: Plan: Reports previous treatment for this. Latent TB discovered in 1988 when he entered the [facility]. No history of BCG vaccine and uncertain exposure in the past. Currently doing well on steroid therapy. (4) DVT prophylaxis: Plan: Lovenox Full code Disposition-to home when medically stable Rocio [facility] and Anticipated Discharge Date Admission Date: April 21, 2021 Subjective 65-year-old man presents with acute respiratory failure secondary to Covid pneumonia Slight increase in oxygen needs from 5 L/min to 9 L/min today from yesterday Reports some difficulty sleeping as he had trouble laying on his stomach and proning Otherwise denies any fevers, chills, or other symptoms at this time. Tolerating p.o. Review of Systems Review of Systems: At least ten systems were reviewed and negative except as indicated in HPI above. Physical Exam Physical Exam: CONSTITUTIONAL: WNWD, vitals as above, generally well-appearin g EYES: normal conjunctivae, no scleral icterus ENT: external ear and nose normal, MMM NECK: trachea midline RESPIRATORY: clear to auscultation bilaterally, no crackles, rales or wheezes, normal respiratory effort CARDIOVASCULAR: regular rate and rhythm, S1 and 2 heard without murmurs, gallops or rubs, no JVD, no peripheral edema CHEST: inspection of chest was normal GASTROINTESTINAL: normal bowel sounds, soft, nontender, ND, no guarding. MUSCULOSKELETAL: strength 5/5 throughout, head is normocephalic and atraumatic SKIN: warm and dry NEUROLOGIC: CN 2-12 grossly intact, no sensory deficit, normal cognition, normal speech, no tremor, no gross focal deficits. PSYCHIATRIC: alert cooperative and oriented to person, place and time. Results & Data Results & Data ([facility]) Vital Signs (Past 12 Hours) Vital Signs Temp Pulse Pulse Resp BP Pulse Ox 04/24/21 12:27 36.6 C 75 18 120/74 94 04/24/21 08:29 36.9 C 80 20 117/73 91 04/24/21 07:42 72 04/24/21 03:42 36.5 C 72 19 126/83 96 Medications Administered Current Inpatient Medications Acetaminophen (Acetaminophen 325 Mg Tab) 650 mg PO Q4H PRN PRN Reason: Pain or Fever Stop: 05/21/21 16:05 Albuterol (Albut/Ipratrop 3mg/0.5mg Neb 3 Ml Vial) 3 ml NEB Q4R PRN PRN Reason: shortness of breath Stop: 05/21/21 16:05 Ascorbic Acid (Ascorbic Acid 500 Mg Tab) 500 mg PO BID [facility] Stop: 05/24/21 10:59 Last Admin: 04/24/21 12:24 Dose: 500 mg Documented by: Enoxaparin Sodium (Enoxaparin Inj 40 Mg/0.4 Ml Syr) 40 mg SQ Q24H [facility] Stop: 05/21/21 16:59 Last Admin: 04/23/21 18:39 Dose: 40 mg Documented by: Dexamethasone 6 mg/ Syringe 1.5 mls @ 1 mls/min IV Q24H [facility] Stop: 05/22/21 12:59 Last Admin: 04/24/21 13:19 Dose: 1 mls/min Documented by: Furosemide 20 mg/ Syringe 2 mls @ 4 [facility] Stop: 05/24/21 10:59 Last Admin: 04/24/21 12:25 Dose: 4 mls/min Documented by: Vitamin D (Cholecalciferol 1,000 Units 25 Mcg Tab) 1,000 units PO QAM [facility] Stop: 05/24/21 10:59 Last Admin: 04/24/21 13:18 Dose: 1,000 units Documented by: Zinc Sulfate (Zinc Sulfate 220 Mg Capsule) 220 [facility] Stop: 05/24/21 10:59 Last Admin: 04/24/21 12:23 Dose: 220 mg Documented by: (1) Respiratory failure with hypoxia Chronicity: acute Qualified Code(s): J96.01 - Acute respiratory failure with hypoxia
[2021-04-24] MEDS: ENOXAPARIN INJ 40 MG/0.4 ML SYR SQ SCH (17:08)
[2021-04-25 08:30] LABS: BUN Creatinine Ratio 28.7 (10-20); Creatinine Clr Calc Pharmacy 85.4 ml/min; Est GFR (African American) 111.7 ml/min; Est GFR (Non-African American) 96.4 ml/min; Magnesium 2.6 mg/dl (1.8-2.4); Potassium 4.8 mmol/L (3.5-5.1)
[2021-04-25] MEDS: FUROSEMIDE 20 MG in SYRINGE 0 ML IV SCH (09:36)
[2021-04-25] MEDS: CHOLECALCIFEROL 1,000 UNITS 25 MCG TAB PO SCH (09:36)
[2021-04-25] MEDS: ZINC SULFATE 220 MG CAPSULE PO SCH (09:36)
[2021-04-25] MEDS: ASCORBIC ACID 500 MG TAB PO SCH ×2 (09:36→20:49)
--- NOTE | 2021-04-25 11:12 | Hospitalist Progress Note ---
Date of Service April 25, 2021 Assessment & Plan (1) Respiratory failure with hypoxia: Plan: Secondary to Covid pneumonia. Patient has had ongoing symptoms for the past 2 weeks and has been utilizing home oxygen from a family member prior to admission. He continues on dexamethasone 6 mg daily and is doing well. He received Tocilizumab on 04/21/2021. He has had a decrease in oxygen needs overnight. He continues to prone, pulmonary toilet as needed. He is otherwise asymptomatic. (2) Pneumonia due to COVID-19 virus: Plan: Continue plan per above. (3) Latent tuberculosis: Plan: Reports previous treatment for this. Latent TB discovered in 1988 when he entered the [facility]. No history of BCG vaccine and uncertain exposure in the past. Currently doing well on steroid therapy. (4) DVT prophylaxis: Plan: Lovenox Full code Disposition-to home when medically stable Rocio Martinez DO [place] [facility] Admission and Anticipated Discharge Date Admission Date: April 21, 2021 Subjective 65-year-old man presents with acute respiratory failure secondary to Covid pneumonia Decreased oxygen needs overnight Denies any dyspnea, fevers, chills Fighting boredom and eager to be discharged Tolerating p.o. Review of Systems Review of Systems: At least ten systems were reviewed and negative except as indicated in HPI above. Physical Exam Physical Exam: CONSTITUTIONAL: WNWD, vitals as above, generally well- appearing EYES: normal conjunctivae, no scleral icterus ENT: external ear and nose normal, MMM NECK: trachea midline RESPIRATORY: clear to auscultation bilaterally, no crackles, rales or wheezes, normal respiratory effort CARDIOVASCULAR: regular rate and rhythm, S1 and 2 heard without murmurs, gallops or rubs, no JVD, no peripheral edema CHEST: inspection of chest was normal GASTROINTESTINAL: normal bowel sounds, soft, nontender, ND, no guarding. MUSCULOSKELETAL: strength 5/5 throughout, head is normocephalic and atraumatic SKIN: warm and dry NEUROLOGIC: CN 2-12 grossly intact, no sensory deficit, normal cognition, normal speech, no tremor, no gross focal deficits. PSYCHIATRIC: alert cooperative and oriented to person, place and time. Results & Data Results & Data ([facility]) Vital Signs (Past 12 Hours) Vital Signs Temp Pulse Pulse Resp BP Pulse Ox 04/25/21 11:03 64 04/25/21 09:45 93 04/25/21 07:54 36.6 C 67 18 100/64 97 04/25/21 03:47 36.8 C 71 18 97/66 L 93 04/25/21 00:00 76 Laboratory Results [facility] 04/25/21 07:34 Sodium 138 Potassium 4.8 Chloride 103 Carbon Dioxide 31 BUN 22 H Creatinine 0.76 Glucose 89 Calcium 9.0 Medications Administered Current Inpatient Medications Acetaminophen (Acetaminophen 325 Mg Tab) 650 mg PO Q4H PRN PRN Reason: Pain or Fever Stop: 05/21/21 16:05 Albuterol (Albut/Ipratrop 3mg/0.5mg Neb 3 Ml Vial) 3 ml NEB Q4R PRN PRN Reason: shortness of breath Stop: 05/21/21 16:05 Ascorbic Acid (Ascorbic Acid 500 Mg Tab) 500 mg PO BID [facility] Stop: 05/24/21 10:59 Last Admin: 04/25/21 09:36 Dose: 500 mg Documented by: Enoxaparin Sodium (Enoxaparin Inj 40 Mg/0.4 Ml Syr) 40 mg SQ Q24H [facility] Stop: 05/21/21 16:59 Last Admin: 04/24/21 17:08 Dose: 40 mg Documented by: Dexamethasone 6 mg/ Syringe 1.5 mls @ 1 mls/min IV Q24H [facility] Stop: 05/22/21 12:59 Last Admin: 04/24/21 13:19 Dose: 1 mls/min Documented by: Furosemide 20 mg/ Syringe 2 mls @ [facility] [place] [place] Stop: 05/24/21 10:59 Last Admin: 04/25/21 09:36 Dose: 4 mls/min Documented by: Vitamin D (Cholecalciferol 1,000 Units 25 Mcg Tab) 1,000 [facility] [place] Stop: 05/24/21 10:59 Last Admin: 04/25/21 09:36 Dose: 1,000 units Documented by: Zinc Sulfate (Zinc Sulfate 220 Mg Capsule) [facility] [place] Stop: 05/24/21 10:59 Last Admin: 04/25/21 09:36 Dose: 220 mg Documented by: (1) Respiratory failure with hypoxia Chronicity: acute Qualified Code(s): J96.01 - Acute respiratory failure with hypoxia
[2021-04-25] MEDS: dexAMETHasone 6 MG in SYRINGE 0 ML IV SCH (13:42)
[2021-04-25] MEDS: ENOXAPARIN INJ 40 MG/0.4 ML SYR SQ SCH (18:09)
[2021-04-26] MEDS: ASCORBIC ACID 500 MG TAB PO SCH ×2 (08:01→20:16)
[2021-04-26] MEDS: ZINC SULFATE 220 MG CAPSULE PO SCH (08:01)
[2021-04-26] MEDS: CHOLECALCIFEROL 1,000 UNITS 25 MCG TAB PO SCH (08:01)
[2021-04-26] MEDS: dexAMETHasone 6 MG in SYRINGE 0 ML IV SCH (11:49)
[2021-04-26] MEDS: ENOXAPARIN INJ 40 MG/0.4 ML SYR SQ SCH (16:38)
--- NOTE | 2021-04-26 19:47 | Hospitalist Progress Note ---
Date of Service April 26, 2021 Assessment & Plan (1) Respiratory failure with hypoxia: Plan: Secondary to Covid pneumonia. Patient has had ongoing symptoms for the past 2 weeks and has been utilizing home oxygen from a family member prior to admission. He continues on dexamethasone daily and is doing well. He received Tocilizumab on 04/21/2021. He has had a decrease in oxygen needs overnight-Now on 3 L/min. He continues to prone, pulmonary toilet as needed. He is otherwise asymptomatic. Covid isolation removed per infection prevention personnel. (2) Pneumonia due to COVID-19 virus: Plan: Continue plan per above. (3) Latent tuberculosis: Plan: Reports previous treatment for this. Latent TB discovered in 1988 when he entered the [place]. No history of BCG vaccine and uncertain exposure in the past. Currently doing well on steroid therapy. (4) DVT prophylaxis: Plan: Lovenox Full code Disposition-to home when medically stable. DC Covid isolation, DC'd telemetry, continue pulse ox monitoring Rocio Martinez DO [facility] Hospitalist Admission and Anticipated Discharge Date Admission Date: April 21, 2021 Subjective 65-year-old man presents with acute respiratory failure secondary to Covid pneumonia Decreased oxygen needs overnight-now on 3LPM Denies any dyspnea, fevers, chills Denies dyspnea with exertion, eager to be discharged. Review of Systems Review of Systems: At least ten systems were reviewed and negative except as indicated in HPI above. Physical Exam Physical Exam: CONSTITUTIONAL: WNWD, vitals as above, generally well- appearing EYES: normal conjunctivae, no scleral icterus ENT: external ear and nose normal, MMM NECK: trachea midline RESPIRATORY: clear to auscultation bilaterally, no crackles, rales or wheezes, normal respiratory effort CARDIOVASCULAR: regular rate and rhythm, S1 and 2 heard without murmurs, gallops or rubs, no JVD, no peripheral edema CHEST: inspection of chest was normal GASTROINTESTINAL: normal bowel sounds, soft, nontender, ND, no guarding. MUSCULOSKELETAL: strength 5/5 throughout, head is normocephalic and atraumatic SKIN: warm and dry NEUROLOGIC: CN 2-12 grossly intact, no sensory deficit, normal cognition, normal speech, no tremor, no gross focal deficits. PSYCHIATRIC: alert cooperative and oriented to person, place and time. Results & Data Results & Data ([facility]) Vital Signs (Past 12 Hours) Vital Signs Temp Pulse Pulse Resp BP Pulse Ox 04/26/21 16:38 36.9 C 83 14 93/61 L 94 04/26/21 11:49 36.9 C 84 14 110/73 93 04/26/21 08:00 36.7 C 63 73 14 102/67 93 Medications Administered Current Inpatient Medications Acetaminophen (Acetaminophen 325 Mg Tab) 650 mg PO Q4H PRN PRN Reason: Pain or Fever Stop: 05/21/21 16:05 Albuterol (Albut/Ipratrop 3mg/0.5mg Neb 3 Ml Vial) 3 ml NEB Q4R PRN PRN Reason: shortness of breath Stop: 05/21/21 16:05 Ascorbic Acid (Ascorbic Acid 500 Mg Tab) 500 mg PO BID [facility] Stop: 05/24/21 10:59 Last Admin: 04/26/21 08:01 Dose: 500 mg Documented by: Enoxaparin Sodium (Enoxaparin Inj 40 Mg/0.4 Ml Syr) 40 mg SQ Q24H [facility] Stop: 05/21/21 16:59 Last Admin: 04/26/21 16:38 Dose: 40 mg Documented by: Dexamethasone 6 mg/ Syringe 1.5 mls @ 1 mls/min IV Q24H [facility] Stop: 05/22/21 12:59 Last Admin: 04/26/21 11:49 Dose: 1 mls/min Documented by: Vitamin D (Cholecalciferol 1,000 Units 25 Mcg Tab) 1,000 units PO QAM [facility] Stop: 05/24/21 10:59 Last Admin: 04/26/21 08:01 Dose: 1,000 units Documented by: Zinc Sulfate (Zinc Sulfate 220 Mg Capsule) 220 mg PO QAM [facility] Stop: 05/24/21 10:59 Last Admin: 04/26/21 08:01 Dose: 220 mg Documented by: (1) Respiratory failure with hypoxia Chronicity: acute Qualified Code(s): J96.01 - Acute respiratory failure with hypoxia
[2021-04-26 22:54] VITALS: TEMP 98.1
[2021-04-27] MEDS: CHOLECALCIFEROL 1,000 UNITS 25 MCG TAB PO SCH (07:47)
[2021-04-27] MEDS: ASCORBIC ACID 500 MG TAB PO SCH (07:48)
[2021-04-27] MEDS: ZINC SULFATE 220 MG CAPSULE PO SCH (07:48)
[2021-04-27 08:27] VITALS: BP 101/65; O2SAT 91
--- NOTE | 2021-04-27 14:24 | Discharge Summary ---
Date of Service April 27, 2021 Admission HPI Per Admitting Provider 65-year-old male without significant past medical history who presents to the ED with reports of shortness of breath. Patient reports testing positive for COVID-19 on 04/08. Official results are not available to me at this time. Patient reports worsening shortness of breath and cough over the past 1 week. Has had a cough productive for mostly white sputum however today became blood- tinged. Patient also reports monitoring his oxygen saturations at home and has been in the 70s. Patient reports some right rib pain from coughing. No chest pain. Reports running persistent fevers of around 100. Reports a very poor appetite. No nausea, vomiting, abdominal pain, diarrhea. Denies lightheadedness, dizziness, diaphoresis, syncopal events. No urinary symptoms. In the ED, patient tested positive for COVID-19. He was saturating 85% on a 15 L nonrebreather, currently being placed on high flow oxygen. Labs are mostly unremarkable. CTA chest negative for pulmonary embolism however shows changes consistent with COVID-19 pneumonia and small bilateral pleural effusions. Patient was given dexamethasone 10 mg IV and IVF. Admission Exam Per Admitting Provider Constitutional: WD/WN, vitals as above Eyes: PERRL, conjunctivae normal, anicteric sclerae ENMT: external ear and nose normal, oropharynx normal Respiratory: normal respiratory effort; no respiratory distress Auscultation: + diminished lung sounds (BL, minimal air movement) Cardiovascular: Rate/Rhythm: regular rate and regular rhythm Vessels: normal peripheral pulses Extremities: no edema Gastrointestinal (Abdomen): normal bowel sounds, soft, nontender, no hepatosplenomegaly Musculoskeletal: no cyanosis or clubbing, extremities motor strength 5/5 Skin: no rashes, warm and dry Neurologic: PERRL, EOMI, accommodation nl, no face palsy, no dysarthria Psychiatric: A+Ox3, euthymic affect Principal Diagnosis Acute respiratory failure covid pneumonia Discharge Exam CONSTITUTIONAL: WNWD, vitals as above, generally well-appearing EYES: normal conjunctivae, no scleral icterus ENT: external ear and nose normal, MMM NECK: trachea midline RESPIRATORY: clear to auscultation bilaterally, no crackles, rales or wheezes, normal respiratory effort CARDIOVASCULAR: regular rate and rhythm, S1 and 2 heard without murmurs, gallops or rubs, no JVD, no peripheral edema CHEST: inspection of chest was normal GASTROINTESTINAL: normal bowel sounds, soft, nontender, ND, no guarding. MUSCULOSKELETAL: strength 5/5 throughout, head is normocephalic and atraumatic SKIN: warm and dry NEUROLOGIC: CN 2-12 grossly intact, no sensory deficit, normal cognition, normal speech, no tremor, no gross focal deficits. PSYCHIATRIC: alert cooperative and oriented to person, place and time. Discharge Data Allergies Allergy/AdvReac Type Severity Reaction Status Date / Time No Known Allergies Allergy Unverified 04/21/21 14:57 Consultations 04/21/21 14:43 ED Decision to Admit Stat 04/21/21 16:06 Consult Pulmonology Routine Ordered Studies Laboratory Results WBC 8.06 K/uL (4.8-10.8) 04/23/21 06:08 RBC 4.78 M/uL (4.7-6.1) 04/23/21 06:08 Hgb 14.0 g/dL (14.0-18.0) 04/23/21 06:08 POC Hgb 13.9 g/dl (14.0-18.0) L 04/21/21 13:37 Hct 42.2 % (42-52) 04/23/21 06:08 POC Hct 41 % (42-52) L 04/21/21 13:37 MCV 88.3 fL (80-100) 04/23/21 06:08 MCH 29.3 pg (25-34) 04/23/21 06:08 MCHC 33.2 g/dL (32-36) 04/23/21 06:08 RDW Std Deviation 44.7 fL (36.4-46.3) 04/23/21 06:08 RDW Coeff of Quynh 13.7 % (11.5-14.5) 04/23/21 06:08 Plt Count 478 K/uL (130-400) H 04/23/21 06:08 MPV 10.9 fL (7.4-10.4) H 04/23/21 06:08 Immature Gran % (Auto) 0.7 % 04/21/21 13:23 Neut % (Auto) 82.4 % 04/21/21 13:23 Lymph % (Auto) 9.8 % 04/21/21 13:23 [place] % (Auto) 7.0 % 04/21/21 13:23 Eos % (Auto) 0.0 % 04/21/21 13:23 Baso % (Auto) 0.1 % 04/21/21 13:23 Neut # (Auto) 6.33 K/uL (1.4-6.5) 04/21/21 13:23 Lymph # (Auto) 0.75 K/uL (1.2-3.4) L 04/21/21 13:23 [place] # (Auto) 0.54 K/uL (0.11-0.59) 04/21/21 13:23 Eos # (Auto) 0.00 K/uL (0-0.5) 04/21/21 13:23 Baso # (Auto) 0.01 K/uL (0-0.2) 04/21/21 13:23 Immature Gran # (Auto) 0.05 K/uL (0.00-0.02) H 04/21/21 13:23 PT 9.8 Seconds (9.0-12.0) 04/21/21 13:23 INR 1.0 (0.9-1.1) 04/21/21 13:23 APTT 26.7 Seconds (21.0-31.0) 04/21/21 13:23 PTT Ratio 1.0 04/21/21 13:23 ABG pH 7.47 (7.35-7.45) H 04/21/21 16:40 ABG pCO2 34 mmHg (35-46) L 04/21/21 16:40 ABG pO2 92 mmHg (80-95) 04/21/21 16:40 ABG HCO3 24 mmol/L (19-24) 04/21/21 16:40 ABG O2 Saturation 97.5 % (90-95) H 04/21/21 16:40 ABG Base Excess 0.9 mEq/L (-9-1.8) 04/21/21 16:40 Davin Test Pos (Pos) 04/21/21 16:40 VBG pH 7.48 (7.36-7.41) H 04/21/21 13:34 VBG pCO2 33 mmHg (38-50) L 04/21/21 13:34 VBG pO2 40 mmHg 04/21/21 13:34 VBG HCO3 24 mmol/L 04/21/21 13:34 VBG O2 Saturation 76.4 % 04/21/21 13:34 VBG Base Excess 1.2 mEq/L 04/21/21 13:34 Barometric Pressure 730.4 mm/Hg 04/21/21 16:40 Oxygen Given 80% 04/21/21 16:40 POC Sodium 133 mmol/L (135-144) L 04/21/21 13:37 Sodium 138 mmol/L (136-145) 04/25/21 07:34 POC Potassium 3.5 mmol/L (3.3-5.0) 04/21/21 13:37 Potassium 4.8 mmol/L (3.5-5.1) 04/25/21 07:34 POC Chloride 98 mmol/L (101-112) L 04/21/21 13:37 Chloride 103 mmol/L (98-107) 04/25/21 07:34 Carbon Dioxide 31 mmol/L (21-32) 04/25/21 07:34 POC Total CO2 22 mmol/L (24-31) L 04/21/21 13:37 Anion Gap 4.0 (3-11) 04/25/21 07:34 POC Anion Gap 18.0 mmol/L (16-25) 04/21/21 13:37 POC BUN 10 mg/dl (7-18) 04/21/21 13:37 BUN 22 mg/dl (7-18) H 04/25/21 07:34 Creatinine 0.76 mg/dl (0.6-1.4) 04/25/21 07:34 POC Creatinine 0.6 mg/dl (0.6-1.3) 04/21/21 13:37 Est Cr Clr Drug Dosing 85.4 ml/min 04/25/21 07:34 Est GFR ( Amer) 111.7 ml/min 04/25/21 07:34 Est GFR (Non-Af Amer) 96.4 ml/min 04/25/21 07:34 BUN/Creatinine Ratio 28.7 (10-20) H 04/25/21 07:34 Glucose 89 mg/dl (70-99) 04/25/21 07:34 POC Glucose (other) 108 mg/dl (70-99) H 04/21/21 13:37 Lactate 1.5 mmol/L (0.4-2.0) 04/21/21 13:34 Calcium 9.0 mg/dl (8.5-10.1) 04/25/21 07:34 POC Ioniz Calcium Alex 1.08 mmol/l (1.12-1.32) L 04/21/21 13:37 Magnesium 2.6 mg/dl (1.8-2.4) H 04/25/21 07:34 Total Bilirubin 0.7 mg/dl (0.2-1) 04/22/21 06:14 AST 67 U/L (15-37) H 04/22/21 06:14 ALT 60 U/L (12-78) 04/22/21 06:14 Alkaline Phosphatase 124 U/L (45-117) H 04/22/21 06:14 Troponin I < 0.015 ng/ml (0-0.045) 04/21/21 13:23 C-Reactive Protein 12.80 mg/dl (0-0.29) H 04/21/21 13:23 Total Protein 6.5 gm/dl (6.4-8.2) 04/22/21 06:14 Albumin 2.2 gm/dl (3.4-5.0) L 04/22/21 06:14 Globulin 4.3 gm/dl (2.5-4.0) H 04/22/21 06:14 Albumin/Globulin Ratio 0.5 (0.9-2) L 04/22/21 06:14 Procalcitonin 0.26 ng/ml (0-0.5) 04/21/21 13:36 TSH 1.030 uIu/ml (0.300-4.500) 04/21/21 13:23 COVID-19 Eval Order Covid19 at [facility] 04/21/21 14:40 SARS-CoV-2 (PCR) POSITIVE (Negative) A* 04/21/21 14:40 Impressions Chest CTA 04/21/21 13:15 CHEST CTA for PULMONARY ARTERIES CT DOSE: 483.25 mGycm HISTORY: Dyspnea, hypoxia, COVID TECHNIQUE: Multiaxial CT images of the chest were performed following the intravenous administration of contrast to evaluate the pulmonary arteries. Maximal intensity projection images were also obtained. A dose lowering technique was utilized adhering to the principles of ALARA. COMPARISON STUDY: None. FINDINGS: Normal caliber thoracic aorta with no evidence for dissection. No filling defects within the pulmonary arteries to suggest a pulmonary embolus. Limited views of the upper abdomen demonstrate normal liver, spleen, and adrenal glands. Normal esophagus. Subcarinal and bilateral hilar lymphadenopathy, right greater than left. Dominant subcarinal/right infrahilar lymph node measures 3.1 x 2.0 cm. This is nonspecific but likely reactive to the pneumonia. There are small bilateral pleural effusions. No pericardial effusion. The heart is normal in size. No pneumothorax. Extensive groundglass opacities throughout the majority of the lungs with associated interlobular septal thickening demonstrating a "crazy paving" pattern. This could be consistent with the patient's history of Covid pneumonia. This is most pronounced within the mid lung zones. The central airways are patent. IMPRESSION: 1. No evidence for pulmonary embolus. 2. Extensive bilateral groundglass airspace opacities. This likely represents the patient's known Covid pneumonia. 3. Small bilateral pleural effusions. 4. Mediastinal and bilateral hilar lymphadenopathy most pronounced on the right. This could be reactive to the suspected pneumonia. ACT 112: Negative or not required by law. Electronically signed by: German Santana M.D. 04/21/2021 2:34 PM Chest X-Ray 04/21/21 13:15 XR chest 1V portable INDICATION: MN ^Y ^Dyspnea . TECHNIQUE: Single frontal radiograph of the chest was obtained. Comparison: None available at the time of this dictation. FINDINGS: No lines and tubes are seen. The cardiomediastinal silhouette is normal. Opaciti es are seen in the predominantly mid and lower lungs. Mild cephalization of vasculature and Janis B lines are noted. No evidence of pleural effusion or pneumothorax. IMPRESSION: 1. Diffuse airspace opacities which may represent atelectasis, pneumonia, and/or aspiration. 2. Likely moderate pulmonary edema. ACT 112: Negative or not required by law. Electronically signed by: Sanjay Larry M.D. 04/21/2021 1:55 PM Hospital Course (1) Respiratory failure with hypoxia: Secondary to Covid pneumonia. Patient has had ongoing symptoms for 2 week prior to arrival and was utilizing home oxygen from a family member prior to admission. He continued on dexamethasone daily and received Tocilizumab on 04/21/2021. Over the time he was admitted his hypoxia completely resolved and he was able to be discharged in stable condition. (2) Pneumonia due to COVID-19 virus: As above. Repeat chest imaging recommended in 4 weeks to ensure complete resolution of pneumonia. (3) Latent tuberculosis: Reports previous treatment for this. Latent TB discovered in 1988 when he entered the [place]. No history of BCG vaccine and uncertain exposure in the past. OK to give tocilizumab ans steroids and he did well. Total Time Total Time Spent Total Time Spent (In Minutes): 60 Discharge Plan Discharge Items Patient Disposition: Home - Self-Care Reason For Visit: COVID PNEUMONIA Discharge Diagnosis: Acute respiratory failure covid pneumonia Condition on Discharge: Good Activity: Resume your previous activity Non-emergency contact: Primary Care Provider Call non-emergency contact if: you have any medication questions, your symptoms worsen, your pain is not controlled, your pain is worsening, your pain is unusual for you and your pain is concerning for you Follow-up/Referrals: Marcelino Hodgson DO [Primary Care Provider] - (Date & Time 05/04/2021 11:00 AM Provider Marcelino Hodgson DO Department Family Practice [facility] PLEASE NOTE THAT THIS IS A TELEHEALTH APPOINTMENT. PLEASE FOLLOW THE INSTRUCTIONS PROVIDED IN YOUR EMAIL. IF YOU HAVE ANY QUESTIONS REGARDING THIS APPOINTMENT, PLEASE CALL ) Diet: Regular Addtl Attending Provider Instructions: It is recommended that you follow-up with your primary care doctor within 1 week of discharge to ensure you are still doing well after returning home. Repeat chest imaging in 4 weeks is recommended to ensure complete resolution of pneumonia. This may be ordered by your primary care physician. It was a pleasure taking care of you! Please call if you have any questions or problems. You can reach a [facility] hospitalist on duty at [facility] 24 hours a day by calling [phone]. Take care of yourself. Rocio Martinez DO [facility] Hospitalist Pending Studies at Discharge: No Stand-Alone Forms: My [facility] Medications and DC Order Prescriptions: No Action No Known Home Medications RF: 0 Discharge Orders: Discharge Order (Routine); Ordered 04/27/21 Ordered By: Rocio Arellano/Other Patient Handouts: Healthy Eating on the Go Admission Data Admit Date/Time: 04/21/21 14:47 Attending Provider: Rocio Martinez Admit Provider: Ofe Le Primary Care Provider: Marcelino Hodgson Other Providers: Ofe Le ; Manpreet Gorman Other Interventions: Discharge Summary Assessment (RN) Last Done: 04/27/21 15:01
[2021-04-27 15:03] VITALS: PULSE 76
== END 2021-04-27 15:24 | disposition home or self-care (01) | DRG 177 ==
LOC: ED 13:00 → 2S 14:47 → SUATTDRO 14:47 → 2S 15:32 → 3W 04-26 20:49